=== PATIENT | female | born 1985 | race Caucasian/White ===

== ENCOUNTER 2019-01-18 22:29 | Inpatient (IN) | payer OTHER, SELFPAY ==
[~2019-01-18] VITALS: Ht 170.2 cm; Wt 56.8 kg
[~2019-01-18 22:29] MED LIST: MOTR200T44 PO; PERCOCET PO; RAMELTEON 8 MG TAB (ROZEREM) PO SCH
[2019-01-18] MEDS ORDERED: NS 1,000 ML IV ONE (22:45)
[2019-01-18 22:57] LABS: BASO # 0.1 10^3/uL (0.0-0.2); BASO % 1.3 % (0.0-1.0); EOS # 0.1 10^3/uL (0.0-0.5); EOS % 1.1 % (0.0-3.0); HEMATOCRIT 24.9 % (36.0-47.0); LYMPH # 1.7 10^3/uL (1.5-5.0); LYMPH % 19.5 % (24.0-44.0); MEAN CORPUSCULAR HEMOGLOBIN 19.1 pg (27.0-33.0); MEAN CORPUSCULAR HGB CONC 26.9 g/dl (32.0-36.5); MEAN CORPUSCULAR VOLUME 70.9 fl (80.0-96.0); MONO # 0.4 10^3/uL (0.0-0.8); MONO % 4.9 % (0.0-5.0); NEUTROPHILS # 6.3 10^3/uL (1.5-8.5); PLATELET COUNT, AUTOMATED 772 10^3/uL (150-450); RED BLOOD COUNT 3.51 10^6/uL (4.00-5.40); WHITE BLOOD COUNT 8.6 10^3/uL (4.0-10.0)
[2019-01-18 23:05] LABS: HEMOGLOBIN 6.7 g/dl (12.0-15.5)
[2019-01-18 23:09] LABS: INR 1.11
[2019-01-18 23:10] LABS: PARTIAL THROMBOPLASTIN TIME 29.7 SECONDS (25.0-38.4)
[2019-01-18 23:13] LABS: OSMOLALITY SERUM 293 MOSM/KG (275-295)
[2019-01-18 23:14] LABS: HCG, SERUM QUALITATIVE NEGATIVE (NEGATIVE)
[2019-01-18] MEDS ORDERED: LORazepam 2 MG/ML VIAL (J2060) IV STA (23:27)
[2019-01-18 23:30] LABS: ACETAMINOPHEN LEVEL 47.2 UG/ML (10.0-30.0); ALBUMIN 3.6 GM/DL (3.2-5.2); ALT/SGPT 12 U/L (12-78); BILIRUBIN,DIRECT 0.1 MG/DL (0.0-0.2); BILIRUBIN,TOTAL 0.2 MG/DL (0.2-1.0); BLOOD UREA NITROGEN 14 MG/DL (7-18); CALCIUM LEVEL 8.2 MG/DL (8.5-10.1); CARBON DIOXIDE LEVEL 18 MEQ/L (21-32); CHLORIDE LEVEL 110 MEQ/L (98-107); CK-MB VALUE MASS < 1.0 NG/ML (<3.6); CPK CREATINE PHOSPHOKINASE 27 U/L (26-192); CREATININE FOR GFR 1.01 MG/DL (0.55-1.30); ETHYL ALCOHOL (ETHANOL) < 0.003 % (0.000-0.010); FERRITIN < 3 NG/ML (8-252); GLOMERULAR FILTRATION RATE > 60.0 (>60); GLUCOSE, FASTING 172 MG/DL (70-100); IRON (FE) 9 UG/DL (50-170); PERCENT SATURATION 2.2 % (13.2-45.0); POTASSIUM SERUM 4.4 MEQ/L (3.5-5.1); SALICYLATE LEVEL < 1.7 MG/DL (5.0-30.0); SODIUM LEVEL 140 MEQ/L (136-145); TOTAL IRON BINDING CAPACITY 415 UG/DL (250-450); TOTAL PROTEIN 7.3 GM/DL (6.4-8.2); TROPONIN I < 0.02 NG/ML (< 0.10)
[2019-01-18] MEDS ORDERED: LORazepam 2 MG/ML VIAL (J2060) As Ordered ONE (23:30)
[2019-01-18] MEDS ORDERED: GI COCKTAIL 50ML BTL(HYOSCYAMINE/MAALOX/LIDOCAINE VISCOUS)(1:3:1) PO ONE (23:45)
[2019-01-18] MEDS ORDERED: ONDANSETRON 4MG/2ML VIAL (J2405) IV ONE (23:45)
[2019-01-19] VITALS (11 sets, daily range): BP systolic 107–130; BP diastolic 64–85
[2019-01-19] MEDS ORDERED: RANI75TA39 PO (00:34)
[2019-01-19] MEDS ORDERED: HYDR-3363 PO (00:34)
[2019-01-19] MEDS ORDERED: LEXA1TAB2 PO (00:34)
[2019-01-19] MEDS ORDERED: LORA1TAB12 PO (00:34)
[2019-01-19] MEDS ORDERED: VENL75CA47 PO (00:34)
[2019-01-19] MEDS ORDERED: AMBI10TA PO (00:34)
[2019-01-19] MEDS ORDERED: BACT800T5 PO (00:34)
[2019-01-19 00:43] LABS: AMPHETAMINES LEVEL URINE NEGATIVE (NEGATIVE); BARBITURATES URINE NEGATIVE (NEGATIVE); BENZODIAZEPINES URINE NEGATIVE (NEGATIVE); CANNABINOIDS URINE POSITIVE (NEGATIVE); COCAINE METABOLITE URINE NEGATIVE (NEGATIVE); METHADONE URINE NEGATIVE (NEGATIVE); OPIATES URINE NEGATIVE (NEGATIVE); PHENCYCLIDINE URINE NEGATIVE (NEGATIVE)
--- NOTE | 2019-01-19 02:22 | HPEPDOC ---
[facility] Medical History & Physical Date of Admission Jan 19, 2019 Date of Service: Jan 19, 2019 Attending Physician: ERIC BARTLETT MD History and Physical CHIEF COMPLAINT: Elevated acetaminophen levels, acute symptomatic anemia and anxiety attack/chest pain HISTORY OF PRESENT ILLNESS: This is a 33-year-old female with a pertinent past medical history of anxiety iron deficiency anemia noncompliant with iron tablets presenting for chest pain earlier this evening. Patient is accompanied by her who supplemented the history as well. She states earlier this evening while she was watching TV she developed midsternal chest pain with no radiation. She believes that the pain started about 8:00 PM and was consistent. She denies any shortness of breath but admits to a history of anxiety and she takes Tylenol PM 2 daily to help her sleep. She admits to taking 6 Tylenol this evening for she felt very anxious and she was unable to sleep. She denies any history of cardiac disease. She was recently seen at [facility] on 01/14 for she had an UTI and anxiety attack. They discharge her on hydroxyzine as well as Bactrim for 10 days. She states her UTI symptoms have resolved but her anxiety symptoms are still out of control. She possibly thinks she had an anxiety attack today. She was advised by [place] to establish with a PCP and change control analyst who she is yet to see. She denies any efficiency patient during that visit. She does admit to seeing a therapist and psychologist and is on Lexapro and Effexor for her anxiety. Lastly she admits that she has a history of iron deficiency anemia and she has not been compliant with the iron tablets for they make her constipated . She has a history of IBS and doesnt like how the iron pills makes her feel full. She denies hair loss, headaches, visual change, shortness of breath, cough, nausea, vomiting, abdominal pain, muscle aches, worsening arthritis or change in mood. She denies any blood in her stool, black tarry stool or bloody vomiting. In the ER, her vitals were stable with some tachycardia of 114 sinus rhythm. She was satting appropriately on room air at 98%. Hemoglobin was 6.7 hematocrit 24.9. Ferritin less than 3. Acetaminophen level 47.2. REVIEW OF SYSTEMS: 10 systems reviewed and negative other than HPI PAST MEDICAL HISTORY: 1. Depression and anxiety 2. Iron deficiency anemia 3. IBS with megacolon? 4. Gestational diabetes PAST SURGICAL HISTORY: 1. section x3 HOME MEDICATIONS: Please see below. ALLERGIES: Please see below SOCIAL HISTORY: Lives with: and kids, Tobacco use: Denies, ETOH: Denies, Illicit drug use: Denies but positive for marijuana on urine tox screen , CODE STATUS: full FAMILY HISTORY: Reviewed. Negative for liver disease or hematological disease PHYSICAL EXAMINATION: VITAL SIGNS: See below GENERAL: Pleasant 33-year-old female sitting up in bed awake alert oriented speaking in complete sentences no acute distress. HEENT: Pale conjunctiva, pupils are dilated but reactive to light and equal. Moist mucous membranes port dentition with no JVD CARDIOVASCULAR: S1 S2 tachycardic rate no additional heart sounds appreciated. RESPIRATORY: Clear to auscultation bilaterally. ABDOMINAL: Bowel sounds present abdomen soft and nontender midline surgical scar appreciated EXTREMITIES: No clubbing cyanosis or edema NEUROLOGICAL: Spontaneously moves all 4 extremities cranial 2 through 12 grossly intact no gross focal deficits appreciated PSYCHOLOGICAL: Anxious INTEGUMENTARY: Skin appears pale no petechiae noted LABORATORY DATA: See below. MICROBIOLOGY: Please see below. IMAGIN01/18/2019 Chest x-ray - official report still pending. Imaging was reviewed by me negative for any acute processes. ASSESSMENT & PLAN: This is a 33-year-old female w a PMH of NEREIDA, IBA, anxiety and depression who will be admitted for managment of acute symptomatic anemia and acetaminophen OD. PROBLEMS: 1. Acute symptomatic anemia with a history of iron deficiency anemia.Iron 9, Ferritin levels < 3, percent reticulocyte 1.1, which is consistent with severe iron deficiency anemia and hypo-proliferation respectively. Well transfuse her 2 units packed RBCs today. Pending Iron panel she possibly will need iron trans fusion outpatients replenish her iron stores for shes not compliant with her oral iron. She denied rectal exam. Will obtain a stool occult and depending on the results the daytime team may consult GI. She states that she has a referral to change control analyst and will need to establish care with them. I believe her chest pain was possibly secondary to her symptomatic anemia. She reported having menorrhagia. Her TSH is normal therefore hyperthyroidism is unlikely the cause. We will consult Gyne prior to ordering TVUS and to discuss OCPs. 2. Acetaminophen OD. Poison control was called and states a follow-up Tylenol level at 3 AM. If levels are greater than 150 initiate NAC protocol. Based on history, physical exam and CMP I do not believe NAC will be necessary but well continue to follow. 3. Thrombocytosis possibly reactive secondary to her significant iron deficiency anemia. 4. History of UTI. Initially on Bactrim twice a day since 01/14. She denies UTI symptoms during exam. Even though UA is positive for 3+ do not believe she needs more antibiotics for shes been on them for 5 days. Well continue to monitor. 5. History of depression and anxiety. Continue home Effexor and Lexapro. She was very anxious and teary. We will place a consult for a sitter and have the day time team consult Psych. In the meanwhile we will continue her home meds. 6. History of insomnia. Well hold Ambien and advised not to take Tylenol PM as the same time as Ambien. Has hydroxyzine 25 mg 3 times a day as well for anxiety which can also be sedative educated patient that she cannot take all his med ications at once for produce respiratory depression. Well hold all home medications and monitor. DVT PROPHYLAXIS: TEDs DISPOSITION: At least 2 midnight Vital Signs Vital Signs Date Time Temp Pulse Resp B/P (MAP) Pulse Ox O2 Delivery O2 Flow Rate FiO2 01/19/19 02:07 99.1 107 17 128/73 100 Room Air Laboratory Data Labs 24H Laboratory Tests 2 01/18/19 22:47: Immature Granulocyte % (Auto) 0.2, Neutrophils (%) (Auto) 73.0H, Lymphocytes (%) (Auto) 19.5L, Monocytes (%) (Auto) 4.9, Eosinophils (%) (Auto) 1.1, Basophils (%) (Auto) 1.3H, Neutrophils # (Auto) 6.3, Lymphocytes # (Auto) 1.7, Monocytes # (Auto) 0.4, Eosinophils # (Auto) 0.1, Basophils # (Auto) 0.1, Reticulocyte # (auto) 38.5, Nucleated Red Blood Cells % (auto) 0.0, Percent Reticulocyte Count 1.1, Reticulocyte Hemoglobin Equivalent 15.9L, Prothrombin Time 14.0, Prothromb Time International Ratio 1.11, Activated Partial Thromboplast Time 29.7, Urine Color STRAW, Urine Appearance CLEAR, Urine pH 5.0, Urine Specific [place] 1.012, Urine Protein NEGATIVE, Urine Glucose (UA) NEGATIVE, Urine Ketones NEGATIVE, Urine Blood NEGATIVE, Urine Nitrite NEGATIVE, Urine Bilirubin NEGATIVE, Urine Urobilinogen 0.2, Urine Leukocyte Esterase 3+H, Urine WBC (Auto) 54H, Urine RBC (Auto) 3, Urine Hyaline Casts (Auto) 0, Urine Bacteria (Auto) NEGATIVE, Urine Squamous Epithelial Cells 1, Urine Sperm (Auto) , Anion Gap 12, Glomerular Filtration Rate > 60.0, Osmolality 293, Calcium Level 8.2L, Iron Level 9L, Total Iron Binding Capacity 415, Transferrin % Saturation 2.2L, Ferritin < 3L, Total Bilirubin 0.2, Direct Bilirubin 0.1, Aspartate Amino Transf (AST/SGOT) 11, Alanine Aminotransferase (ALT/SGPT) 12, Alkaline Phosphatase 64, Total Creatine Kinase 27, Creatine Kinase MB < 1.0, Creatine Kinase MB Relative Index 3.70, Troponin I < 0.02, Total Protein 7.3, Albumin 3.6, Albumin/Globulin Ratio 0.97L, Thyroid Stimulating Hormone (TSH) 1.630, Human Chorionic Gonadotropin, Qual NEGATIVE, Salicylates Level < 1.7L, Urine Opiates Screen NEGATIVE, Urine Methadone Screen NEGATIVE, Acetaminophen Level 47.2H, Urine Barbiturates Screen NEGATIVE, Urine Phencyclidine Screen NEGATIVE, Urine Amphetamines Screen NEGATIVE, Urine Benzodiazepines Screen NEGATIVE, Urine Cocaine Metabolite Screen NEGATIVE, Urine Cannabinoids Screen POSITIVEH, Ethyl Alcohol Level < 0.003 CBC/BMP Laboratory Tests 01/18/19 22:47 Microbiology Microbiology 01/18/19 Urine Culture, Received Pending Home Medications Scheduled Escitalopram Oxalate (Lexapro) 20 Mg Tablet, 20 MG PO DAILY Sulfamethoxazole/Trimethoprim (Bactrim Ds Tablet) 1 Each Tablet, 1 TAB PO BID STARTED 10 DAYS ON 01/14 Venlafaxine HCl (Venlafaxine HCl ER) 75 Mg Cap.er.24h, 75 MG PO DAILY HASN'T STARTED PRESCRIPTION Scheduled PRN Hydroxyzine HCl (Hydroxyzine HCl) 25 Mg Tablet, 25 MG PO TID PRN for ANXIETY Lorazepam (Lorazepam) 1 Mg Tablet, 1 MG PO DAILY PRN for ANXIETY/AGITATION Ranitidine HCl (Ranitidine HCl) 75 Mg Tablet, 1 TAB PO BID PRN for HEARTBURN Zolpidem Tartrate (Ambien) 10 Mg Tablet, 10 MG PO QHS PRN for SLEEP Allergies Coded Allergies: No Known Allergies (Unverified , 01/18/19) GME ATTESTATION GME ATTESTATION My faculty preceptor for this patient encounter was physically present during the encounter and was fully available. All aspects of the patient interview, examination, medical decision making process, and medical care plan development were reviewed and approved by the faculty preceptor. The faculty preceptor is aware and concurs with the plan as stated in the body of this note and will attest to such by his/her cosignature. ATTENDING NOTE I examined at 12:45 AM, reviewed and edited 's note and agree with the findings as documented. MARIAN JOHANSEN DO Jan 19, 2019 02:22 ERIC BARTLETT MD Jan 19, 2019 03:37
[2019-01-19 06:06] LABS: BASO # 0.1 10^3/uL (0.0-0.2); BASO % 1.4 % (0.0-1.0); EOS # 0.1 10^3/uL (0.0-0.5); EOS % 0.7 % (0.0-3.0); HEMATOCRIT 27.6 % (36.0-47.0); LYMPH # 2.6 10^3/uL (1.5-5.0); LYMPH % 26.3 % (24.0-44.0); MEAN CORPUSCULAR HEMOGLOBIN 20.9 pg (27.0-33.0); MEAN CORPUSCULAR VOLUME 72.3 fl (80.0-96.0); MONO # 0.7 10^3/uL (0.0-0.8); MONO % 6.6 % (0.0-5.0); NEUTROPHILS # 6.5 10^3/uL (1.5-8.5); NEUTROPHILS % 64.7 % (36.0-66.0); PLATELET COUNT, AUTOMATED 711 10^3/uL (150-450); RED BLOOD COUNT 3.82 10^6/uL (4.00-5.40)
[2019-01-19 06:34] LABS: ALBUMIN 3.3 GM/DL (3.2-5.2); ALT/SGPT 10 U/L (12-78); BILIRUBIN,TOTAL 0.4 MG/DL (0.2-1.0); BLOOD UREA NITROGEN 8 MG/DL (7-18); CALCIUM LEVEL 8.5 MG/DL (8.5-10.1); CARBON DIOXIDE LEVEL 20 MEQ/L (21-32); CHLORIDE LEVEL 113 MEQ/L (98-107); CREATININE FOR GFR 0.81 MG/DL (0.55-1.30); GLOMERULAR FILTRATION RATE > 60.0 (>60); GLUCOSE, FASTING 87 MG/DL (70-100); MAGNESIUM LEVEL 2.3 MG/DL (1.8-2.4); POTASSIUM SERUM 3.8 MEQ/L (3.5-5.1); SODIUM LEVEL 140 MEQ/L (136-145); TOTAL PROTEIN 6.9 GM/DL (6.4-8.2)
--- NOTE | 2019-01-19 08:45 | REP ---
Portable chest x-ray: Single view. History: Chest pain. No comparison study. Findings: Monitoring electrodes are seen. The lungs are well inflated and clear. The pleural angles are sharp. Heart size is normal. No significant bony abnormality. Left hemidiaphragm is slightly elevated. There is some mild distension of the colon loops under the left hemidiaphragm. Pulmonary vasculature is not increased. Impression: No acute disease. Slightly elevated left hemidiaphragm. Electronically Signed by Dominik Pappas MD 01/19/2019 08:36 A
[2019-01-19] MEDS ORDERED: IRON SUCROSE 100MG 5ML VIAL (J1756 PER 1MG) IV SCH (09:00)
[2019-01-19] MEDS ORDERED: MIRALAX *UNIT DOSE* 17GM PACKET PO SCH (09:00)
[2019-01-19] MEDS ORDERED: VENLAFAXINE **XR** 75MG CAPSULE PO SCH (09:00)
[2019-01-19] MEDS ORDERED: ESCITALOPRAM OXALATE 10 MG TAB (LEXAPRO) PO SCH (09:00)
[2019-01-19] MEDS ORDERED: hydrOXYzine 25 MG TAB PO PRN (09:00)
[2019-01-19] MEDS ORDERED: IRON SUCROSE 100 MG in NS 100 ML OVER 1 HR IV SCH (09:00)
[2019-01-19] MEDS ORDERED: LORazepam 1 MG TAB PO PRN (09:00)
[2019-01-19 09:08] LABS: HEMATOCRIT 33.1 % (36.0-47.0); HEMOGLOBIN 9.5 g/dl (12.0-15.5)
[2019-01-19 09:45] LABS: CK-MB VALUE MASS < 1.0 NG/ML (<3.6); CPK CREATINE PHOSPHOKINASE 31 U/L (26-192); MB/CK RELATIVE INDEX 3.23 (< OR =4); TROPONIN I < 0.02 NG/ML (< 0.10)
[2019-01-19] MEDS ORDERED: PROMETHAZINE INJ 25 MG/ML VIAL (J2550) IV ONE (11:00)
--- NOTE | 2019-01-19 18:50 | DS.PDOC ---
Discharge Summary General Date of Admission Jan 18, 2019 at 23:59 Date of Discharge 01/19/19 Discharge Summary PROCEDURES PERFORMED DURING STAY: [None]. ADMITTING DIAGNOSES: 1. unintentional acetaminophen overdose 2. severe iron deficiency anemia DISCHARGE DIAGNOSES: 1. medical non-compliance 2. menorrhagia 3. anxiety COMPLICATIONS/CHIEF COMPLAINT: Acetaminophen O/D;Anxiety;Iron Deficiency Anemia. HOSPITAL COURSE: This is a 33-year-old female with a pertinent past medical history of anxiety iron deficiency anemia noncompliant with iron tablets presenting for chest pain earlier this evening. Patient is accompanied by her who supplemented the history as well. She states earlier this evening while she was watching TV she developed midsternal chest pain with no radiation. She believes that the pain started about 8:00 PM and was consistent. She denies any shortness of breath but admits to a history of anxiety and she takes Tylenol PM 2 daily to help her sleep. She admits to taking 6 Tylenol this evening for she felt very anxious and she was unable to sleep. She denies any history of cardiac disease. She was recently seen at [facility] on 01/14 for she had an UTI and anxiety attack. They discharge her on hydroxyzine as well as Bactrim for 10 days. She stated her UTI symptoms have resolved but her anxiety symptoms are still out of control. She possibly thinks she had an anxiety attack today. She was advised by [place] to establish with a PCP and straw hat brim raiser operator who she is yet to see. She denies any efficiency patient during that visit. She does admit to seeing a therapist and psychologist and is on Lexapro and Effexor for her anxiety. Lastly she admits that she has a history of iron deficiency anemia and she has not been compliant with the iron tablets for they make her constipated . She has a history of IBS and doesnt like how the iron pills makes her feel full. She denies hair loss, headaches, visual change, shortness of breath, cough, nausea, vomiting, abdominal pain, muscle aches, worsening arthritis or change in mood. She denies any blood in her stool, black tarry stool or bloody vomiting. She was seen and examined in the ICU, receiving transfusion of PRBC. She was extremely anxious. She again confirmed unintentional overdosage of acetaminophen, with no intentions of harming herself, and no history of same. She stated in the morning that she would be leaving after her transfusions. She voiced full understanding of cathy risks of leaving against medical advice. During the day her mood stabilized, but toward the later afternoon, she was very anx ious to return home. 911 telecommunicator consult was appreciated, however hematology consultation was still pending. Case was d/w hematology over the phone, with further workup planned. Patient decided to leave AMA. REVIEW OF SYSTEMS: 10 systems reviewed and negative other than HPI PAST MEDICAL HISTORY: 1. Depression and anxiety 2. Iron deficiency anemia 3. IBS with megacolon? 4. Gestational diabetes PAST SURGICAL HISTORY: 1. section x3 SOCIAL HISTORY: Lives with: and kids, Tobacco use: Denies, ETOH: Denies, Illicit drug use: Denies but positive for marijuana on urine tox screen , CODE STATUS: full FAMILY HISTORY: Reviewed. Negative for liver disease or hematological disease LABORATORY DATA: Please see below. PROGNOSIS: somewhat guarded given medical non-compliance ACTIVITY: [As tolerated]. DISPOSITION: Against Medical Advice. ITEMS TO FOLLOWUP ON ON OUTPATIENT: 1. hematology - patient states she has been scheduled with an appointment 2. recommend follow up CBC/ferritin levels DISCHARGE CONDITION: [Stable]. TIME SPENT ON DISCHARGE: 35 minutes. Vital Signs/I&Os Vital Signs Date Time Temp Pulse Resp B/P (MAP) Pulse Ox O2 Delivery O2 Flow Rate FiO2 01/19/19 10:28 98.4 86 20 113/80 (91) 100 Room Air I&O- Last 24 Hours up to 6 AM 01/19/19 06:00 Intake Total 1924 ml Output Total 0 ml Balance 1924 ml Laboratory Data Labs 24H Laboratory Tests 2 01/18/19 22:47: Immature Granulocyte % (Auto) 0.2, Neutrophils (%) (Auto) 73.0H, Lymphocytes (%) (Auto) 19.5L, Monocytes (%) (Auto) 4.9, Eosinophils (%) (Auto) 1.1, Basophils (%) (Auto) 1.3H, Neutrophils # (Auto) 6.3, Lymphocytes # (Auto) 1.7, Monocytes # (Auto) 0.4, Eosinophils # (Auto) 0.1, Basophils # (Auto) 0.1, Reticulocyte # (auto) 38.5, Nucleated Red Blood Cells % (auto) 0.0, Percent Reticulocyte Count 1.1, Reticulocyte Hemoglobin Equivalent 15.9L, Prothrombin Time 14.0, Prothromb Time International Ratio 1.11, Activated Partial Thromboplast Time 29.7, Urine Color STRAW, Urine Appearance CLEAR, Urine pH 5.0, Urine Specific [place] 1.012, Urine Protein NEGATIVE, Urine Glucose (UA) NEGATIVE, Urine Ketones NEGATIVE, Urine Blood NEGATIVE, Urine Nitrite NEGATIVE, Urine Bilirubin NEGATIVE, Urine Urobilinogen 0.2, Urine Leukocyte Esterase 3+H, Urine WBC (Auto) 54H, Urine RBC (Auto) 3, Urine Hyaline Casts (Auto) 0, Urine Bacteria (Auto) NEGATIVE, Urine Squamous Epithelial Cells 1, Urine Sperm (Auto) , Anion Gap 12, Glomerular Filtration Rate > 60.0, Osmolality 293, Calcium Level 8.2L, Iron Level 9L, Total Iron Binding Capacity 415, Transferrin % Saturation 2.2L, Ferritin < 3L, Total Bilirubin 0.2, Direct Bilirubin 0.1, Aspartate Amino Transf (AST/SGOT) 11, Alanine Aminotransferase (ALT/SGPT) 12, Alkaline Phosphatase 64, Total Creatine Kinase 27, Creatine Kinase MB < 1.0, Creatine Kinase MB Relative Index 3.70, Troponin I < 0.02, Total Protein 7.3, Albumin 3.6, Albumin/Globulin Ratio 0.97L, Thyroid Stimulating Hormone (TSH) 1.630, Human Chorionic Gonadotropin, Qual NEGATIVE, Salicylates Level < 1.7L, Urine Opiates Screen NEGATIVE, Urine Me thadone Screen NEGATIVE, Acetaminophen Level 47.2H, Urine Barbiturates Screen NEGATIVE, Urine Phencyclidine Screen NEGATIVE, Urine Amphetamines Screen NEGATIVE, Urine Benzodiazepines Screen NEGATIVE, Urine Cocaine Metabolite Screen NEGATIVE, Urine Cannabinoids Screen POSITIVEH, Ethyl Alcohol Level < 0.003 01/19/19 05:22: Immature Granulocyte % (Auto) 0.3, Neutrophils (%) (Auto) 64.7, Lymphocytes (%) (Auto) 26.3, Monocytes (%) (Auto) 6.6H, Eosinophils (%) (Auto) 0.7, Basophils (%) (Auto) 1.4H, Neutrophils # (Auto) 6.5, Lymphocytes # (Auto) 2.6, Monocytes # (Auto) 0.7, Eosinophils # (Auto) 0.1, Basophils # (Auto) 0.1, Nucleated Red Blood Cells % (auto) 0.0, Anion Gap 7L, Glomerular Filtration Rate > 60.0, Calcium Level 8.5, Total Bilirubin 0.4#, Aspartate Amino Transf (AST/SGOT) 6L, Alanine Aminotransferase (ALT/SGPT) 10L, Alkaline Phosphatase 60, Total Protein 6.9, Albumin 3.3, Albumin/Globulin Ratio 0.92L, Acetaminophen Level < 2.0L, Magnesium Level 2.3 01/19/19 08:52: Total Creatine Kinase 31, Creatine Kinase MB < 1.0, Creatine Kinase MB Relative Index 3.23, Troponin I < 0.02 CBC/BMP Laboratory Tests 01/18/19 22:47 01/19/19 05:22 01/19/19 08:52 Microbiology Microbiology 01/18/19 Urine Culture, Received Pending Discharge Medications Scheduled Escitalopram Oxalate (Lexapro) 20 Mg Tablet, 20 MG PO DAILY, (Reported) Sulfamethoxazole/Trimethoprim (Bactrim Ds Tablet) 1 Each Tablet, 1 TAB PO BID, (Reported) STARTED 10 DAYS ON 01/14 Venlafaxine HCl (Venlafaxine HCl ER) 75 Mg Cap.er.24h, 75 MG PO DAILY, (Reported) HASN'T STARTED PRESCRIPTION Scheduled PRN Hydroxyzine HCl (Hydroxyzine HCl) 25 Mg Tablet, 25 MG PO TID PRN for ANXIETY, (Reported) Lorazepam (Lorazepam) 1 Mg Tablet, 1 MG PO DAILY PRN for ANXIETY/AGITATION, (Reported) Ranitidine HCl (Ranitidine HCl) 75 Mg Tablet, 1 TAB PO BID PRN for HEARTBURN, (Reported) Zolpidem Tartrate (Ambien) 10 Mg Tablet, 10 MG PO QHS PRN for SLEEP, (Reported) Allergies Coded Allergies: No Known Allergies (Unverified , 01/18/19) PARIS BENNETT MD Jan 19, 2019 18:50
--- NOTE | 2019-01-19 18:57 | MEDONCENPD ---
Date/Time of Encounter Date of Encounter: Jan 19, 2019 Time of Encounter: 18:00 Encounter Hematology and Oncology On-Call Physician Notation History Cass Kimbrough is a 33 year old woman admitted via the Emergency Department on January 18, 2019 with chief complaint of chest discomfort and exertional dyspnea. The patient had previously been noted to be severely anemic, and referral had been made to Hematology and Oncology; however, the patient had not been seen to date. On presentation, the patient was tachycardic with pulse of 114 beats per minute, but vital signs were otherwise stable. Troponin levels were obtained, and acute cardiac ischemia was ruled out. The patient was transfused packed red blood cells without immediate complication, and parenteral iron was administered as well. On admission, the patient's hemoglobin was 6.7 gram/dL, with hematocrit of 24.9%, along with elevated platelet count of 772,000 per microliter; Mean Corpuscular Volume was decreased from normal at 70.9 fL. Per discussion with the hospitalist attending, the patient has had menorrhagia as one source of blood loss. This morning, January 19, 2019 at 8:52 am, hemoglobin had increased to 9.5 gram/dL with hematocrit of 33.1%, and the patient reported feeling markedly improved, per chart notations. The attending hospitalist requested a Hematology Consult early this afternoon, but the patient left "Against Medical Advice" prio r to being seen for formal consultation. Laboratory Data Pertinent laboratory data from this admission include normal creatinine of 1.01 mg/dL, normal Prothrombin Time of 14.0 seconds, normal partial Thromboplastin Time of 29.7 seconds. The serum iron was 9 microgram/dL, markedly decreased (confirming that the patient had not been taking oral iron recently); Serum Ferritin level was unmeasurably low at < 3 ng/mL. Impression 1) Anemia. The patient presented with microcytic anemia, consistent with her di agnosis of iron deficiency anemia, proven by the unmeasurably low serum ferritin level. There appears to be no other evident contributing factor to the anemia. The source of blood loss is at least in part, if not in whole, from menorrhagia; however, for completeness, it may be appropriate to consider GI endoscopy as an outpatient, particularly if hormonal modulatory therapy to eliminate menorrhagia does not prevent recurrent anemia. Among the contraceptives with the least likelihood of inducing venous thromboembolic disease, the Mirena ring appears to be among those with the lowest risk of causing venous thrombosis. The patient has received a considerable amount of iron between the transfused red blood cells and the parenteral iron, and this should be sufficient for her hemoglobin level to rise to near normal. However, she would likely benefit from monitoring of serum ferritin as well as complete blood counts going forward. There is a very remote possibility of a mild underlying bleeding disorder, such as von Willebrand disease; however, she has had Section, apparently without need for transfusion, so this appears relatively unlikely. 2) Thrombocytosis. The patient's thrombocytosis is attributable to a reaction - termed "reactive thrombocytosis" - to the iron deficiency. With iron repletion, the platelet count shoujld normalize. Recommendations It is recommended that the patient have monthly complete blood counts and serum ferritin measurements until these have stabilized in the normal range. It appears unlikely that she will be fully compliant with oral iron supplementation; however, if she is willing to take oral iron, then ferrous gluconate 325 mg po daily taken together with Vitamin C 250 mg daily in the same mouthful (to augment iron absorption) is recommended, until the ferritin has normalized in the range of 150 ng/ml. The Division of Hematology and Oncology would be pleased to see this young woman as an outpatient at her convenience. NIKHIL Paris MD, MD Jan 19, 2019 18:57
--- NOTE | 2019-01-19 19:41 | ECGEPIP ---
[facility] - ED Test Date: 2019-01-18 Pat Name: INDIRA FARFAN Department: Room: [place] [address] Gender: Female Ppap Coordinator: sarath : 1985 Requested By: DANIELLE Hardy Order Number: [id number] Reading MD: Alfonso Marina Measurements Intervals [place] Rate: 107 P: 47 SD: 129 QRS: 5 QRSD: 76 T: 40 QT: 324 QTc: 434 Interpretive Statements SINUS TACHYCARDIA LEFTWARD AXIS MINIMAL ST DEPRESSION ABNORMAL RHYTHM ECG NO PRIOR ECG FOR COMPARISON Electronically Signed on 01-19-2019 19:41:29 EST by Alfonso Marina
== END 2019-01-19 16:43 | disposition left against medical advice (07) | DRG 918 ==
LOC: M ED 22:29 → M ED INP 23:59 → M ICU 01-19 01:18
PROVIDERS: ADMIT Internal Medicine; ATTEND Internal Medicine
PROC: 30233N1 Transfusion of Nonautologous Red Blood Cells into Peripheral Vein, Percutaneous Approach (ICD-10-PCS; principal; 2019-01-18)
DX: T39.1X1A Poisoning by 4-Aminophenol derivatives, accidental (unintentional), initial encounter (principal); K59.39 Other megacolon; F32.9 Major depressive disorder, single episode, unspecified; D50.9 Iron deficiency anemia, unspecified; K58.1 Irritable bowel syndrome with constipation; R07.89 Other chest pain; N92.0 Excessive and frequent menstruation with regular cycle; D47.3 Essential (hemorrhagic) thrombocythemia; G47.00 Insomnia, unspecified; Z79.899 Other long term (current) drug therapy; Z91.19 Patient's noncompliance with other medical treatment and regimen